=== PATIENT | male | born 1935 | race Caucasian/White ===

== ENCOUNTER 2019-10-18 16:48 | Emergency (ER) | payer OTHER ==
[~2019-10-18] VITALS: Ht 154.9 cm; Wt 67.6 kg
[2019-10-18 17:00] VITALS: BP_SYST 97
--- NOTE | 2019-10-18 17:00 | NUR ---
Patient to ER bed 6 to gown for evaluation. Side rails up. Assumed care.
--- NOTE | 2019-10-18 17:05 | NUR ---
Patient arrived via wheelchair with family accompanying. Patient c/c of fuentes, with blood from urethra. Patient states he broke his hip approximately 1 month ago and he had a fuentes placed, he was discharged to a [facility], and discharged on 10/06/19. Then told to follow up with PCP regarding fuentes catheter removal. Patient was seen within the past 2 weeks and told he needed to follow up with another physician, but referrel was made. Patient requesting removal of fuentes catheter. Deny continue to follow up and monitor.
--- NOTE | 2019-10-18 17:07 | NUR ---
ER at bedside examining patient.
--- NOTE | 2019-10-18 17:07 | NUR ---
Note undmar in EDM - 10/18/19 at 1816 by [email or web address] Patient given written and verbal discharge instructions and verbalizes understanding. ER discussed with patient the results and treatment provided. Patient in stable condition. ID arm band removed. Rx of Keflex given. Patient educated on pain management and to follow up with PMD. Pain Scale 0/10. Opportunity for questions provided and answered. Medication side effect fact sheet provided.
--- NOTE | 2019-10-18 17:30 | NUR ---
MD Bledsoe removed fuetnes catheter, patient states he does not want a fuentes catheter. Agreeable to return if not producing urine.
[2019-10-18 17:40] VITALS: BP_SYST 101
--- NOTE | 2019-10-18 17:40 | NUR ---
Patient given written and verbal discharge instructions and verbalizes understanding. ER MD discussed with patient the results and treatment provided. Patient in stable condition. ID arm band removed. Rx of Keflex given. Patient educated on pain management and to follow up with PMD. Pain Scale 0/10. Opportunity for questions provided and answered. Medication side effect fact sheet provided. Instructed to return if no urine produced within 6-8 hours, or if there is pain from bladder distention. Patient and family verbalized understanding.
== END 2019-10-18 17:40 | disposition home or self-care (01) ==
LOC: SED 16:48
DX: T83.091A Other mechanical complication of indwelling urethral catheter, initial encounter (principal); Z46.6 Encounter for fitting and adjustment of urinary device
CPT/HCPCS: 99284

== ENCOUNTER 2019-10-28 20:00 | Inpatient (IN) | payer OTHER ==
[~2019-10-28] VITALS: Ht 167.6 cm; Wt 71.7 kg
[2019-10-28 20:38] VITALS: BP_SYST 119
[2019-10-28 21:16] LABS: BASOPHILS # (AUTO) 0.1 K/uL (0.0-0.2); BASOPHILS % (AUTO) 0.8 % (0.0-2.0); EOSINOPHILS # (AUTO) 0.1 K/uL (0.0-0.4); EOSINOPHILS % (AUTO) 0.6 % (0.0-4.0); HEMATOCRIT 34.4 % (36-54); LYMPHOCYTES # (AUTO) 0.8 K/uL (1.0-5.5); LYMPHOCYTES % (AUTO) 9.2 % (20.5-51.5); MEAN CORPUSCULAR HEMOGLOBIN 27 pg (27-31); MEAN CORPUSCULAR HGB CONC 32 % (32-36); MEAN CORPUSCULAR VOLUME 83 fL (79.0-98.0); MONOCYTES # (AUTO) 0.6 K/uL (0.0-1.0); MONOCYTES % (AUTO) 6.4 % (1.7-9.3); NEUTROPHILS # (AUTO) 7.6 K/uL (1.8-7.7); PLATELET COUNT (AUTO) 282 K/uL (130-430); RED BLOOD CELL COUNT(AUTO) 4.13 MIL/uL (4.2-6.2); RED CELL DISTRIBUTION WIDTH 18.8 % (9.0-15.0); WHITE BLOOD COUNT (AUTO) 9.2 K/uL (4.8-10.8)
[2019-10-28 21:28] LABS: ANION GAP 7 (5-15); CALCIUM 9.3 mg/dL (8.4-11.0); CHLORIDE 104 mmol/L (98-107); CREATININE 1.36 mg/dL (0.55-1.30); GLUCOSE 118 mg/dL (70-99); POTASSIUM 4.5 mmol/L (3.5-5.1); SODIUM SERUM 137 mmol/L (136-145); UREA NITROGEN, BLOOD 23 mg/dL (8-21)
[2019-10-28 21:34] LABS: ALANINE AMINOTRANSFERASE 12 U/L (12-78); ALBUMIN 3.2 g/dL (3.4-4.8); ASPARTATE AMINOTRANSFERASE 14 U/L (10-37); TOTAL BILIRUBIN 0.5 mg/dL (0.0-1.0)
[2019-10-29] VITALS (7 sets, daily range): BP systolic 133–165
[2019-10-29] MEDS ORDERED: LORazepam 2 MG/ML VIAL IM ONE (01:45)
[2019-10-29] MEDS ORDERED: VANCOMYCIN HCL 1,000 MG in NS 250 ML IV ONE (03:15)
[2019-10-29] MEDS ORDERED: PIPERACILLIN/TAZO 3.375 GM in NS 50 ML IV ONE (03:15)
[2019-10-29] MEDS ORDERED: ACETAMINOPHEN 650 MG SUPP.RECT RC ONE (03:15)
[2019-10-29] MEDS ORDERED: NACL 0.9% 1,000 ML IV ONE ×2 (03:15→03:30)
[2019-10-29 03:44] LABS: BASOPHILS % (AUTO) 0.3 % (0.0-2.0); EOSINOPHILS % (AUTO) 0.2 % (0.0-4.0); HEMATOCRIT 34.2 % (36-54); LYMPHOCYTES # (AUTO) 0.3 K/uL (1.0-5.5); LYMPHOCYTES % (AUTO) 3.7 % (20.5-51.5); MEAN CORPUSCULAR HEMOGLOBIN 27 pg (27-31); MEAN CORPUSCULAR HGB CONC 32 % (32-36); MEAN CORPUSCULAR VOLUME 83 fL (79.0-98.0); MONOCYTES # (AUTO) 0.1 K/uL (0.0-1.0); NEUTROPHILS # (AUTO) 8.6 K/uL (1.8-7.7); NEUTROPHILS % (AUTO) 94.8 % (40.0-70.0); PLATELET COUNT (AUTO) 251 K/uL (130-430); RED BLOOD CELL COUNT(AUTO) 4.12 MIL/uL (4.2-6.2); RED CELL DISTRIBUTION WIDTH 18.2 % (9.0-15.0); WHITE BLOOD COUNT (AUTO) 9.1 K/uL (4.8-10.8)
[2019-10-29 03:55] LABS: ANION GAP 7 (5-15); CHLORIDE 105 mmol/L (98-107); CREATININE 1.37 mg/dL (0.55-1.30); GLUCOSE 111 mg/dL (70-99); POTASSIUM 4.3 mmol/L (3.5-5.1); SODIUM SERUM 138 mmol/L (136-145); UREA NITROGEN, BLOOD 23 mg/dL (8-21)
[2019-10-29] MEDS ORDERED: PIPERACILLIN/TAZOBACTAM 3.375 GM/VIAL (ZOSYN) IV ONE (04:02)
[2019-10-29] MEDS ORDERED: VANCOMYCIN HCL 1000 MG/VIAL IV ONE (04:02)
[2019-10-29 04:04] LABS: ALANINE AMINOTRANSFERASE 12 U/L (12-78); ALBUMIN 3.1 g/dL (3.4-4.8); ASPARTATE AMINOTRANSFERASE 14 U/L (10-37); TOTAL BILIRUBIN 0.9 mg/dL (0.0-1.0)
[2019-10-29] MEDS: NACL 0.9% 1,000 ML IV SCH ×3 (05:57→23:29)
[2019-10-29] MEDS ORDERED: ALBUTEROL SULFATE 0.083% 2.5 MG/3 ML VIAL.NEB INH PRN (08:45)
[2019-10-29] MEDS ORDERED: HYDROcodone/ACETAMIN 5-325 MG TAB (NORCO/ VICODIN) PO PRN (08:45)
[2019-10-29] MEDS ORDERED: ONDANSETRON HCL 4 MG/2 ML VIAL IVP PRN (08:45)
[2019-10-29] MEDS: cefTRIAXone 1 GM IVPB PREMIX 50 ML IV SCH (10:52)
[2019-10-29] MEDS: ACETAMINOPHEN 650 MG SUPP.RECT RC PRN ×2 (11:36→21:30)
[2019-10-29] MEDS ORDERED: RIVA20TA PO (14:08)
[2019-10-29] MEDS ORDERED: METO25TA6 PO (14:10)
[2019-10-29] MEDS ORDERED: LEVO100T9 PO (14:10)
[2019-10-29] MEDS ORDERED: TAMS-11 PO (14:10)
[2019-10-29] MEDS ORDERED: CEPH-568 PO (14:10)
[2019-10-29] MEDS ORDERED: METOPROLOL TARTRATE 25 MG TABLET PO ONE (21:00)
[2019-10-29] MEDS: TAMSULOSIN HCL 0.4 MG CAP PO SCH (23:28)
[2019-10-30 00:12] VITALS: BP_SYST 141
[2019-10-30 06:38] LABS: BASOPHILS % (AUTO) 0.4 % (0.0-2.0); HEMATOCRIT 29.1 % (36-54); HEMOGLOBIN 9.3 g/dL (14.0-18.0); LYMPHOCYTES # (AUTO) 0.3 K/uL (1.0-5.5); LYMPHOCYTES % (AUTO) 4.2 % (20.5-51.5); MEAN CORPUSCULAR HEMOGLOBIN 27 pg (27-31); MEAN CORPUSCULAR HGB CONC 32 % (32-36); MEAN CORPUSCULAR VOLUME 83 fL (79.0-98.0); MONOCYTES # (AUTO) 0.3 K/uL (0.0-1.0); MONOCYTES % (AUTO) 3.2 % (1.7-9.3); NEUTROPHILS # (AUTO) 7.5 K/uL (1.8-7.7); NEUTROPHILS % (AUTO) 92.2 % (40.0-70.0); PLATELET COUNT (AUTO) 150 K/uL (130-430); RED CELL DISTRIBUTION WIDTH 18.3 % (9.0-15.0); WHITE BLOOD COUNT (AUTO) 8.2 K/uL (4.8-10.8)
[2019-10-30 07:00] LABS: ALANINE AMINOTRANSFERASE 15 U/L (12-78); ALBUMIN 2.1 g/dL (3.4-4.8); ANION GAP 5 (5-15); ASPARTATE AMINOTRANSFERASE 21 U/L (10-37); CALCIUM 7.7 mg/dL (8.4-11.0); CHLORIDE 108 mmol/L (98-107); CREATININE 1.09 mg/dL (0.55-1.30); GLUCOSE 95 mg/dL (70-99); POTASSIUM 3.8 mmol/L (3.5-5.1); SODIUM SERUM 137 mmol/L (136-145); TOTAL BILIRUBIN 0.5 mg/dL (0.0-1.0); UREA NITROGEN, BLOOD 18 mg/dL (8-21)
[2019-10-30 08:00] VITALS: BP_SYST 127
[2019-10-30] MEDS ORDERED: RIVAROXABAN 10 MG TABLET PO SCH (09:00)
[2019-10-30] MEDS: cefTRIAXone 1 GM IVPB PREMIX 50 ML IV SCH (10:30)
[2019-10-30] MEDS: NACL 0.9% 1,000 ML IV SCH ×2 (10:31→17:53)
[2019-10-30] MEDS: LEVOTHYROXINE SODIUM 0.1 MG TABLET PO SCH (11:34)
[2019-10-30] MEDS: METOPROLOL TARTRATE 25 MG TABLET PO SCH ×2 (11:35→21:02)
[2019-10-30] MEDS: TAMSULOSIN HCL 0.4 MG CAP PO SCH (11:36)
[2019-10-30 12:24] VITALS: BP_SYST 110
[2019-10-30 16:11] VITALS: BP_SYST 147
[2019-10-30 20:00] VITALS: BP_SYST 130
[2019-10-30 23:44] VITALS: BP_SYST 139
[2019-10-31 04:00] VITALS: BP_SYST 150
[2019-10-31] MEDS: NACL 0.9% 1,000 ML IV SCH (05:34)
[2019-10-31] MEDS: cefTRIAXone 1 GM IVPB PREMIX 50 ML IV SCH (10:41)
[2019-10-31] MEDS: LEVOTHYROXINE SODIUM 0.1 MG TABLET PO SCH (10:41)
[2019-10-31] MEDS: TAMSULOSIN HCL 0.4 MG CAP PO SCH (10:42)
[2019-10-31 10:45] VITALS: BP_SYST 122
[2019-10-31] MEDS: METOPROLOL TARTRATE 25 MG TABLET PO SCH ×2 (10:45→22:03)
[2019-10-31 16:50] VITALS: BP_SYST 128
[2019-10-31] MEDS ORDERED: AMOX-426 PO (16:55)
[2019-10-31 20:00] VITALS: BP_SYST 161
[2019-11-01 00:11] VITALS: BP_SYST 146
[2019-11-01] MEDS: NACL 0.9% 1,000 ML IV SCH ×2 (03:50→21:30)
[2019-11-01 08:00] VITALS: BP_SYST 139
[2019-11-01] MEDS: METOPROLOL TARTRATE 25 MG TABLET PO SCH ×3 (09:00→22:15)
[2019-11-01] MEDS: TAMSULOSIN HCL 0.4 MG CAP PO SCH (09:37)
[2019-11-01] MEDS: LEVOTHYROXINE SODIUM 0.1 MG TABLET PO SCH (09:38)
[2019-11-01] MEDS: cefTRIAXone 1 GM IVPB PREMIX 50 ML IV SCH (09:38)
[2019-11-01 11:31] VITALS: BP_SYST 110
[2019-11-01 15:17] VITALS: BP_SYST 123
[2019-11-01 15:21] VITALS: BP_SYST 123
[2019-11-01 20:00] VITALS: BP_SYST 147
[2019-11-02 04:00] VITALS: BP_SYST 129
[2019-11-02] MEDS: LEVOTHYROXINE SODIUM 0.025 MG TABLET PO SCH (07:14)
[2019-11-02 07:34] LABS: BASOPHILS % (AUTO) 0.7 % (0.0-2.0); EOSINOPHILS # (AUTO) 0.1 K/uL (0.0-0.4); EOSINOPHILS % (AUTO) 1.6 % (0.0-4.0); HEMATOCRIT 30.2 % (36-54); HEMOGLOBIN 9.8 g/dL (14.0-18.0); LYMPHOCYTES # (AUTO) 0.8 K/uL (1.0-5.5); LYMPHOCYTES % (AUTO) 17.4 % (20.5-51.5); MEAN CORPUSCULAR HEMOGLOBIN 27 pg (27-31); MEAN CORPUSCULAR HGB CONC 32 % (32-36); MEAN CORPUSCULAR VOLUME 82 fL (79.0-98.0); MONOCYTES # (AUTO) 0.4 K/uL (0.0-1.0); MONOCYTES % (AUTO) 8.2 % (1.7-9.3); NEUTROPHILS # (AUTO) 3.3 K/uL (1.8-7.7); NEUTROPHILS % (AUTO) 72.1 % (40.0-70.0); PLATELET COUNT (AUTO) 164 K/uL (130-430); RED BLOOD CELL COUNT(AUTO) 3.69 MIL/uL (4.2-6.2); RED CELL DISTRIBUTION WIDTH 18.1 % (9.0-15.0); WHITE BLOOD COUNT (AUTO) 4.6 K/uL (4.8-10.8)
[2019-11-02 08:00] VITALS: BP_SYST 136
[2019-11-02 08:18] LABS: ALANINE AMINOTRANSFERASE 15 U/L (12-78); ALBUMIN 2.2 g/dL (3.4-4.8); ANION GAP 8 (5-15); ASPARTATE AMINOTRANSFERASE 7 U/L (10-37); CALCIUM 8.5 mg/dL (8.4-11.0); CHLORIDE 103 mmol/L (98-107); CREATININE 0.85 mg/dL (0.55-1.30); GLUCOSE 98 mg/dL (70-99); SODIUM SERUM 136 mmol/L (136-145); TOTAL BILIRUBIN 0.2 mg/dL (0.0-1.0); UREA NITROGEN, BLOOD 18 mg/dL (8-21)
[2019-11-02] MEDS: LEVOTHYROXINE SODIUM 0.1 MG TABLET PO SCH (09:29)
[2019-11-02] MEDS: TAMSULOSIN HCL 0.4 MG CAP PO SCH (09:29)
[2019-11-02] MEDS: cefTRIAXone 1 GM IVPB PREMIX 50 ML IV SCH (09:29)
[2019-11-02] MEDS: METOPROLOL TARTRATE 25 MG TABLET PO SCH ×2 (09:30→21:05)
[2019-11-02 11:43] VITALS: BP_SYST 142
[2019-11-02] MEDS: NACL 0.9% 1,000 ML IV SCH (12:58)
[2019-11-02 15:24] VITALS: BP_SYST 108
[2019-11-02 21:00] VITALS: BP_SYST 146
[2019-11-03] MEDS: NACL 0.9% 1,000 ML IV SCH (00:49)
[2019-11-03 01:07] VITALS: BP_SYST 140
[2019-11-03] MEDS: LEVOTHYROXINE SODIUM 0.025 MG TABLET PO SCH (06:24)
[2019-11-03] MEDS ORDERED: FLU VACC TS2019(65UP)/MF59C/PF 45 MCG/0.5 ML SYRINGE I.M. PRN (06:30)
[2019-11-03 08:14] VITALS: BP_SYST 131
[2019-11-03] MEDS: LEVOTHYROXINE SODIUM 0.1 MG TABLET PO SCH (08:23)
[2019-11-03] MEDS: TAMSULOSIN HCL 0.4 MG CAP PO SCH (08:24)
[2019-11-03] MEDS: METOPROLOL TARTRATE 25 MG TABLET PO SCH (08:25)
[2019-11-03] MEDS: cefTRIAXone 1 GM IVPB PREMIX 50 ML IV SCH (10:42)
[2019-11-03 11:15] VITALS: BP_SYST 124
[2019-11-03] MEDS ORDERED: LEVO500T89 PO (12:59)
[2019-11-03 13:49] VITALS: BP_SYST 124
== END 2019-11-03 13:35 | disposition home or self-care (01) | DRG 871 ==
LOC: SED 20:00 → STU 10-29 04:51 → SMU 11-02 09:40
PROVIDERS: ADMIT Internal Medicine; ATTEND Internal Medicine
DX: A41.52 Sepsis due to Pseudomonas (principal); E43 Unspecified severe protein-calorie malnutrition; G93.41 Metabolic encephalopathy; N39.0 Urinary tract infection, site not specified; I10 Essential (primary) hypertension; R31.0 Gross hematuria; E03.9 Hypothyroidism, unspecified; Z68.25 Body mass index [BMI] 25.0-25.9, adult; Z79.899 Other long term (current) drug therapy; Z87.81 Personal history of (healed) traumatic fracture; Z78.1 Physical restraint status
CPT/HCPCS: 36415; 70450-TC; 71045; 80053; 82607; 84443-TC; 84484; 85025; 85379; 87040-TC; 87186-TC; 93005; 93970; 96365; 96366; 96368; 97116-GP; 97530-GP; 99285; G0378; J0696; J2060; J2543; J3370; J7030; J7613

== ENCOUNTER 2019-11-11 06:15 | Emergency (ER) | payer OTHER ==
[~2019-11-11] VITALS: Ht 177.8 cm; Wt 67.6 kg
[~2019-11-11 06:15] MED LIST: LEVO100T9 PO; LEVO500T89 PO; METO25TA6 PO; RIVA20TA PO; TAMS-11 PO
[2019-11-11 06:48] VITALS: BP_SYST 169
--- NOTE | 2019-11-11 06:48 | NUR ---
Pt wheeled to bed 7 for evaluation
--- NOTE | 2019-11-11 07:30 | NUR ---
Patient is awake, alert, and oriented x4. Patient states,"I drank too much water. Now it's stuck. It hurts." Patient presents with lower abdominal pain 10/10. He has a fuentes catheter inserted with bloody discharge. His states he has not urinated in 14 hours.
[2019-11-11] MEDS ORDERED: LORazepam 2 MG/ML VIAL IVP ONE (07:45)
[2019-11-11] MEDS ORDERED: MORPHINE 2 MG/ML INJ. SYRINGE IVP ONE (07:45)
[2019-11-11 07:55] LABS: BASOPHILS # (AUTO) 0.1 K/uL (0.0-0.2); BASOPHILS % (AUTO) 0.8 % (0.0-2.0); EOSINOPHILS % (AUTO) 0.3 % (0.0-4.0); HEMATOCRIT 36.1 % (36-54); HEMOGLOBIN 11.7 g/dL (14.0-18.0); LYMPHOCYTES % (AUTO) 13.3 % (20.5-51.5); MEAN CORPUSCULAR HEMOGLOBIN 26 pg (27-31); MEAN CORPUSCULAR HGB CONC 32 % (32-36); MEAN CORPUSCULAR VOLUME 81 fL (79.0-98.0); MONOCYTES # (AUTO) 0.4 K/uL (0.0-1.0); MONOCYTES % (AUTO) 5.4 % (1.7-9.3); NEUTROPHILS # (AUTO) 5.9 K/uL (1.8-7.7); NEUTROPHILS % (AUTO) 80.2 % (40.0-70.0); PLATELET COUNT (AUTO) 387 K/uL (130-430); RED BLOOD CELL COUNT(AUTO) 4.44 MIL/uL (4.2-6.2); RED CELL DISTRIBUTION WIDTH 17.9 % (9.0-15.0); WHITE BLOOD COUNT (AUTO) 7.3 K/uL (4.8-10.8)
[2019-11-11 08:02] LABS: ANION GAP 6 (5-15); CALCIUM 9.2 mg/dL (8.4-11.0); CHLORIDE 101 mmol/L (98-107); CREATININE 1.16 mg/dL (0.55-1.30); GLUCOSE 108 mg/dL (70-99); SODIUM SERUM 134 mmol/L (136-145); UREA NITROGEN, BLOOD 21 mg/dL (8-21)
[2019-11-11 08:09] LABS: ALANINE AMINOTRANSFERASE 21 U/L (12-78); ALBUMIN 3.3 g/dL (3.4-4.8); ASPARTATE AMINOTRANSFERASE 16 U/L (10-37); TOTAL BILIRUBIN 0.5 mg/dL (0.0-1.0)
--- NOTE | 2019-11-11 08:18 | NUR ---
# 16 FR Fuentes catheter with use of sterile technique. Immediate return of 875 cc dark yellow urine noted. Bedside drainage bag placed below level of bladder. Urine sample collected and sent to lab. Pt tolerated procedure well. Patient arrived with fuentes in place, changed due to standard of practice prior to admission.
--- NOTE | 2019-11-11 08:26 | NUR ---
Patient transported to radiology via gurney, accompanied by commercial hvac technician.
--- NOTE | 2019-11-11 08:39 | NUR ---
Returned from radiology, back to [facility].
--- NOTE | 2019-11-11 09:20 | NUR ---
Patient's is going to get coffee. She is requesting to be called at for updates if she is out.
[2019-11-11 09:45] LABS: BILIRUBIN,URINE NEGATIVE (NEGATIVE); BLOOD, URINE 3+ (NEGATIVE); CLARITY/URINE SL CLOUDY (CLEAR); COLOR,URINE YELLOW (YELLOW); GLUCOSE,URINE NEGATIVE (NEGATIVE); KETONES,URINE NEGATIVE (NEGATIVE); LEUKOCYTE ESTERASE ,URINE TRACE (NEGATIVE); NITRITE, URINE NEGATIVE (NEGATIVE); PROTEIN URINE TRACE (NEGATIVE); UROBILINOGEN,URINE 0.2 (0.2-1.0)
--- NOTE | 2019-11-11 09:49 | NUR ---
Emptied 1.1L of yuliana urine from fuentes catheter.
[2019-11-11 10:09] LABS: BACTERIA,URINE MANY /HPF (None Seen); RBC,URINE 50-80 /HPF (0-3)
[2019-11-11 10:45] LABS: URINE AMORPHOUS URATE 1+ /HPF (None Seen)
[2019-11-11 11:39] VITALS: BP_SYST 148
--- NOTE | 2019-11-11 12:36 | NUR ---
Patient given written and verbal discharge instructions and verbalizes understanding. ER MD discussed with patient the results and treatment provided. Patient in stable condition. ID arm band removed. IV catheter removed intact and dressing applied, no active bleeding. No Rx given. Patient educated on pain management and to follow up with PMD. Pain Scale 0/10 . Opportunity for questions provided and answered. Medication side effect fact sheet provided.
== END 2019-11-11 12:36 | disposition home or self-care (01) ==
LOC: SED 06:15
DX: R33.9 Retention of urine, unspecified (principal); N39.0 Urinary tract infection, site not specified; J44.9 Chronic obstructive pulmonary disease, unspecified; Z79.899 Other long term (current) drug therapy
CPT/HCPCS: 36415; 51702; 74176; 80053; 81000; 85025; 87086; 96374; 96375; 99284; J2060; J2270

== ENCOUNTER 2019-11-19 11:29 | Emergency (ER) | payer OTHER ==
[~2019-11-19] VITALS: Ht 177.8 cm; Wt 67.6 kg
[2019-11-19 11:30] VITALS: BP_SYST 157
[2019-11-19] MEDS ORDERED: NACL 0.9% 1,000 ML IV ONE (11:44)
[2019-11-19] MEDS ORDERED: MORPHINE 2 MG/ML INJ. SYRINGE IVP ONE (11:45)
[2019-11-19 12:32] LABS: BASOPHILS # (AUTO) 0.1 K/uL (0.0-0.2); EOSINOPHILS # (AUTO) 0.1 K/uL (0.0-0.4); EOSINOPHILS % (AUTO) 1.6 % (0.0-4.0); HEMATOCRIT 31.3 % (36-54); HEMOGLOBIN 10.1 g/dL (14.0-18.0); LYMPHOCYTES # (AUTO) 0.9 K/uL (1.0-5.5); LYMPHOCYTES % (AUTO) 14.8 % (20.5-51.5); MEAN CORPUSCULAR HEMOGLOBIN 26 pg (27-31); MEAN CORPUSCULAR HGB CONC 32 % (32-36); MEAN CORPUSCULAR VOLUME 80 fL (79.0-98.0); MONOCYTES # (AUTO) 0.5 K/uL (0.0-1.0); MONOCYTES % (AUTO) 7.5 % (1.7-9.3); PLATELET COUNT (AUTO) 275 K/uL (130-430); RED BLOOD CELL COUNT(AUTO) 3.92 MIL/uL (4.2-6.2); RED CELL DISTRIBUTION WIDTH 17.7 % (9.0-15.0); WHITE BLOOD COUNT (AUTO) 6.1 K/uL (4.8-10.8)
[2019-11-19 12:33] LABS: BASOPHILS % (AUTO) 0.7 % (0.0-2.0); NEUTROPHILS % (AUTO) 75.4 % (40.0-70.0)
[2019-11-19 12:34] LABS: NEUTROPHILS # (AUTO) 4.7 K/uL (1.8-7.7)
[2019-11-19 12:39] LABS: ANION GAP 10 (5-15); CALCIUM 8.5 mg/dL (8.4-11.0); CHLORIDE 103 mmol/L (98-107); CREATININE 0.94 mg/dL (0.55-1.30); GLUCOSE 94 mg/dL (70-99); POTASSIUM 3.8 mmol/L (3.5-5.1); SODIUM SERUM 136 mmol/L (136-145); UREA NITROGEN, BLOOD 20 mg/dL (8-21)
[2019-11-19 12:44] LABS: ALANINE AMINOTRANSFERASE 17 U/L (12-78); ALBUMIN 2.9 g/dL (3.4-4.8); ASPARTATE AMINOTRANSFERASE 18 U/L (10-37); TOTAL BILIRUBIN 0.4 mg/dL (0.0-1.0)
[2019-11-19 13:37] LABS: BILIRUBIN,URINE 1+ (NEGATIVE); BLOOD, URINE 3+ (NEGATIVE); CLARITY/URINE SL CLOUDY (CLEAR); COLOR,URINE BROWN (YELLOW); GLUCOSE,URINE NEGATIVE (NEGATIVE); KETONES,URINE NEGATIVE (NEGATIVE); LEUKOCYTE ESTERASE ,URINE TRACE (NEGATIVE); NITRITE, URINE POSITIVE (NEGATIVE); PH,URINE 6.5 (5.0-8.0); PROTEIN URINE 2+ (NEGATIVE); UROBILINOGEN,URINE 0.2 (0.2-1.0)
[2019-11-19] MEDS ORDERED: cefTRIAXone 1 GM IVPB PREMIX 50 ML IV ONE (13:45)
[2019-11-19 13:55] LABS: BACTERIA,URINE FEW /HPF (None Seen); RBC,URINE >100 /HPF (0-3)
[2019-11-19 15:25] VITALS: BP_SYST 150
== END 2019-11-19 15:25 | disposition home or self-care (01) ==
LOC: SED 11:29
DX: N39.0 Urinary tract infection, site not specified (principal); R31.9 Hematuria, unspecified; Z79.899 Other long term (current) drug therapy
CPT/HCPCS: 36415; 51702; 80053; 81000; 83605; 85025; 87040; 87086; 96365; 96375; 99284; J0696; J2270; J7030